=== PATIENT | male | born 1965 | race Asian ===

== ENCOUNTER 2017-12-06 22:08 | Emergency (ER) | payer OTHER ==
[~2017-12-06] VITALS: Ht 182.9 cm; Wt 112.9 kg
[2017-12-06 22:41] LABS: PLATELET COUNT 242 K/uL (142-355)
[2017-12-06 22:47] LABS: POTASSIUM 3.5 mmol/L (3.6-5.2); SODIUM 140 mmol/L (136-145)
[2017-12-06 23:50] VITALS: BP 135/73; TEMP 98.5
[2017-12-12] MEDS ORDERED: DIVA500T2 PO (03:09)
[2017-12-12] MEDS ORDERED: FINASTERIDE5 MG PO (03:10)
[2017-12-12] MEDS ORDERED: GABA300C2 PO (03:12)
[2017-12-12] MEDS ORDERED: GLIM2TAB PO (03:13)
[2017-12-12] MEDS ORDERED: HALO10TA5 PO (03:14)
[2017-12-12] MEDS ORDERED: METO50TA27 PO (03:16)
[2017-12-12] MEDS ORDERED: LISI20TA11 PO (03:18)
[2017-12-12] MEDS ORDERED: HYDROCHLOROT12.5 M1 PO (03:19)
[2017-12-12] MEDS ORDERED: METF500T PO (03:20)
[2017-12-12] MEDS ORDERED: SIMV40TA57 PO (03:21)
[2017-12-12] MEDS ORDERED: TAMS0.4C PO (03:22)
[2017-12-12] MEDS ORDERED: TERAZOSIN1 MG PO (03:23)
[2017-12-12] MEDS ORDERED: TRAZ100T PO (03:24)
[2017-12-12] MEDS ORDERED: ZIPR80CA PO (03:25)
[2018-01-01] MEDS ORDERED: FINGERSTIX (13:48)
[2018-01-01] MEDS ORDERED: CLARITIN10 M1 PO (13:49)
[2018-01-01] MEDS ORDERED: EC-81 ASPIRIN81 MG PO (13:51)
[2018-01-01] MEDS ORDERED: HYDRALAZINE25 MG PO (13:54)
[2018-01-06] MEDS ORDERED: METF500T PO (15:29)
[2018-01-06] MEDS ORDERED: HYDROCHLOROT12.5 M1 PO (15:29)
[2018-01-06] MEDS ORDERED: TERAZOSIN1 MG PO (15:29)
[2018-01-06] MEDS ORDERED: HALO5TAB10 PO (15:29)
[2018-01-06] MEDS ORDERED: GABA300C2 PO (15:29)
[2018-01-06] MEDS ORDERED: TAMS0.4C PO (15:29)
[2018-01-06] MEDS ORDERED: FINASTERIDE5 MG PO (15:29)
[2018-01-06] MEDS ORDERED: TRAZ100T PO (15:29)
[2018-01-06] MEDS ORDERED: ZIPR80CA PO (15:29)
[2018-01-06] MEDS ORDERED: GLIM2TAB PO (15:29)
[2018-01-06] MEDS ORDERED: METO50TA27 PO (15:29)
[2018-01-06] MEDS ORDERED: SIMV40TA57 PO (15:29)
[2018-01-06] MEDS ORDERED: LISI20TA11 PO (15:29)
[2018-01-06] MEDS ORDERED: DIVA500T2 PO ×2 (15:30)
== END 2017-12-06 23:51 | disposition home or self-care (01) ==
LOC: ED 22:08
PROVIDERS: Internal Medicine
DX: R07.89 Other chest pain (principal); E11.9 Type 2 diabetes mellitus without complications; I10 Essential (primary) hypertension; F20.89 Other schizophrenia; R06.02 Shortness of breath; M79.89 Other specified soft tissue disorders; I51.7 Cardiomegaly; J44.9 Chronic obstructive pulmonary disease, unspecified
CPT/HCPCS: 36415; 80053; 82550; 83880; 84484; 85027; 93005; 99283

== ENCOUNTER 2017-12-29 00:39 | Outpatient (CLI) | payer OTHER ==
[~2017-12-29 00:39] MED LIST: DIVA500T2 PO; FINASTERIDE5 MG PO; GABA300C2 PO; GLIM2TAB PO; HALO10TA5 PO; HYDROCHLOROT12.5 M1 PO; LISI20TA11 PO; METF500T PO; METO50TA27 PO; SIMV40TA57 PO; TAMS0.4C PO; TERAZOSIN1 MG PO; TRAZ100T PO; ZIPR80CA PO
[2018-01-01] MEDS ORDERED: FINGERSTIX (13:48)
[2018-01-01] MEDS ORDERED: CLARITIN10 M1 PO (13:49)
[2018-01-01] MEDS ORDERED: EC-81 ASPIRIN81 MG PO (13:51)
[2018-01-01] MEDS ORDERED: HYDRALAZINE25 MG PO (13:54)
[2018-01-06] MEDS ORDERED: FINASTERIDE5 MG PO (15:29)
[2018-01-06] MEDS ORDERED: TAMS0.4C PO (15:29)
[2018-01-06] MEDS ORDERED: HALO5TAB10 PO (15:29)
[2018-01-06] MEDS ORDERED: TRAZ100T PO (15:29)
[2018-01-06] MEDS ORDERED: LISI20TA11 PO (15:29)
[2018-01-06] MEDS ORDERED: ZIPR80CA PO (15:29)
[2018-01-06] MEDS ORDERED: METO50TA27 PO (15:29)
[2018-01-06] MEDS ORDERED: TERAZOSIN1 MG PO (15:29)
[2018-01-06] MEDS ORDERED: METF500T PO (15:29)
[2018-01-06] MEDS ORDERED: SIMV40TA57 PO (15:29)
[2018-01-06] MEDS ORDERED: GLIM2TAB PO (15:29)
[2018-01-06] MEDS ORDERED: GABA300C2 PO (15:29)
[2018-01-06] MEDS ORDERED: HYDROCHLOROT12.5 M1 PO (15:29)
[2018-01-06] MEDS ORDERED: DIVA500T2 PO ×2 (15:30)
== END 2017-12-29 00:40 | disposition short-term general hospital (02) ==
LOC: AMB 00:39
DX: M79.89 Other specified soft tissue disorders (principal)
CPT/HCPCS: A0425; A0429

== ENCOUNTER 2017-12-29 00:54 | Emergency (ER) | payer OTHER ==
[~2017-12-29] VITALS: Ht 188 cm; Wt 114.3 kg
[2017-12-29 01:48] LABS: PLATELET COUNT 241 K/uL (142-355)
[2017-12-29 03:05] VITALS: BP 143/73; TEMP 98.7
[2018-01-01] MEDS ORDERED: FINGERSTIX (13:48)
[2018-01-01] MEDS ORDERED: CLARITIN10 M1 PO (13:49)
[2018-01-01] MEDS ORDERED: EC-81 ASPIRIN81 MG PO (13:51)
[2018-01-01] MEDS ORDERED: HYDRALAZINE25 MG PO (13:54)
[2018-01-06] MEDS ORDERED: GABA300C2 PO (15:29)
[2018-01-06] MEDS ORDERED: HYDROCHLOROT12.5 M1 PO (15:29)
[2018-01-06] MEDS ORDERED: TRAZ100T PO (15:29)
[2018-01-06] MEDS ORDERED: HALO5TAB10 PO (15:29)
[2018-01-06] MEDS ORDERED: ZIPR80CA PO (15:29)
[2018-01-06] MEDS ORDERED: METF500T PO (15:29)
[2018-01-06] MEDS ORDERED: GLIM2TAB PO (15:29)
[2018-01-06] MEDS ORDERED: LISI20TA11 PO (15:29)
[2018-01-06] MEDS ORDERED: TAMS0.4C PO (15:29)
[2018-01-06] MEDS ORDERED: FINASTERIDE5 MG PO (15:29)
[2018-01-06] MEDS ORDERED: SIMV40TA57 PO (15:29)
[2018-01-06] MEDS ORDERED: TERAZOSIN1 MG PO (15:29)
[2018-01-06] MEDS ORDERED: METO50TA27 PO (15:29)
[2018-01-06] MEDS ORDERED: DIVA500T2 PO ×2 (15:30)
== END 2017-12-29 03:06 | disposition home or self-care (01) ==
LOC: ED 00:54
PROVIDERS: Family Medicine
DX: M19.072 Primary osteoarthritis, left ankle and foot (principal); M25.472 Effusion, left ankle; F25.0 Schizoaffective disorder, bipolar type; E11.9 Type 2 diabetes mellitus without complications; I10 Essential (primary) hypertension
CPT/HCPCS: 80053; 83880; 85027; 99283

== ENCOUNTER 2018-10-17 18:00 | Emergency (ER) | payer OTHER ==
[~2018-10-17] VITALS: Ht 198.1 cm; Wt 125.2 kg
[2018-10-17 18:00] VITALS: BP 158/69; TEMP 98.1
[~2018-10-17 18:00] MED LIST changes: +CLARITIN10 M1 PO; +EC-81 ASPIRIN81 MG PO; +FINGERSTIX; +HALO5TAB10 PO; +HYDRALAZINE25 MG PO
[2018-10-17 18:45] LABS: PLATELET COUNT 197 K/uL (142-355)
[2018-10-17 18:51] LABS: POTASSIUM 3.8 mmol/L (3.6-5.2)
[2018-10-17] MEDS ORDERED: ASPIR-8181 MG PO (22:04)
[2018-10-17] MEDS ORDERED: CLON0.2D TD (22:05)
[2018-10-17] MEDS ORDERED: COLCRYS 0.6MG0.6 MG PO (22:06)
[2018-10-17] MEDS ORDERED: VITAMIN D32000 UNIT PO (22:07)
[2018-10-17] MEDS ORDERED: OMEPRAZOLE DR20 MG PO (22:08)
[2018-10-17] MEDS ORDERED: HALO2CON2 PO (22:13)
[2018-10-17] MEDS ORDERED: MAPAP325 MG PO (22:14)
[2018-10-17] MEDS ORDERED: FSBS (22:17)
== END 2018-10-17 19:40 | disposition other institution (70) ==
LOC: ED 18:00
PROVIDERS: Student in an Organized Health Care Education/Training Program
DX: F20.89 Other schizophrenia (principal); Z04.6 Encounter for general psychiatric examination, requested by authority
CPT/HCPCS: 80053; 85027; 93005; 99285

== ENCOUNTER 2018-12-04 16:03 | Emergency (ER) | payer OTHER ==
[~2018-12-04] VITALS: Ht 198.1 cm; Wt 128.8 kg
[~2018-12-04 16:03] MED LIST changes: +ASPIR-8181 MG PO; +CLON0.2D TD; +COLCRYS 0.6MG0.6 MG PO; +FSBS; +HALO2CON2 PO; +MAPAP325 MG PO; +NICODERM C21 MG/241 TD; +OMEPRAZOLE DR20 MG PO; +OXCARBAZEPIN300 MG PO; +VITAMIN D32000 UNIT PO
[2018-12-04 16:22] LABS: PLATELET COUNT 222 K/uL (142-355)
[2018-12-04 16:35] LABS: POTASSIUM 3.7 mmol/L (3.6-5.2)
[2018-12-04 17:15] VITALS: BP 197/91; TEMP 99
[2018-12-04] MEDS ORDERED: ARTIFICIA7 OPTH (17:36)
[2018-12-04] MEDS ORDERED: HALO2CON2 PO (17:37)
[2018-12-04] MEDS ORDERED: MELATONIN3 MG PO (17:38)
== END 2018-12-04 17:15 | disposition other institution (70) ==
LOC: ED 16:03
PROVIDERS: Emergency Medicine
DX: F28 Other psychotic disorder not due to a substance or known physiological condition (principal); Z04.6 Encounter for general psychiatric examination, requested by authority
CPT/HCPCS: 80053; 85027; 93005; 99285